=== PATIENT | female | born 1995 | race Caucasian/White ===

== ENCOUNTER → 2017-07-08 | Outpatient (CLI) | payer BC ==
--- NOTE | 2017-07-08 15:38 | RAD ---
Examination: 3 views of the left foot History: History of left foot pain for 3 weeks Comparison: None available Findings: The metatarsal bones grossly appears unremarkable. The alignment of the tarsometatarsal, metatarsophalangeal joints, interphalangeal grossly appears unremarkable. Impression: No acute osseous findings.
== END | disposition home or self-care (01) ==
LOC: DXRADRC 15:24
PROVIDERS: ATTEND Physician Assistant
DX: M79.672 Pain in left foot (principal)
CPT/HCPCS: 73630

== ENCOUNTER → 2017-07-16 | Outpatient (CLI) | payer BC ==
--- NOTE | 2017-07-16 15:41 | RAD ---
Focused ultrasound evaluation of the soft tissues of the posterior neck 07/16/2017 Indication: Soft tissue fullness in the posterior neck x7 years, possibly increasing in size. Discussion: Focused ultrasound evaluation of the soft tissues of the posterior neck was performed. Static images were submitted to PACS. No focal sonographic abnormality is identified. No abnormal blood flow seen on color Doppler imaging. No mass, or abnormal fluid collection is appreciated. Impression: No focal sonographic abnormality is identified
== END | disposition home or self-care (01) ==
LOC: US 14:25
PROVIDERS: ATTEND Physician Assistant
DX: R22.1 Localized swelling, mass and lump, neck (principal)
CPT/HCPCS: 76536

== ENCOUNTER 2017-10-06 21:38 | Emergency (ER) | payer SELFPAY ==
[~2017-10-06] VITALS: Ht 167.6 cm; Wt 89.0 kg
--- NOTE | 2017-10-06 21:39 | ED.ADGEN ---
Adult General Chief Complaint Chief Complaint " We both got sick after some [place] food..." HPI HPI Patient is a 22 year old female who presents with above hx. and complaints nausea, vomiting and diarrhea. Recent hx of [place] food. Her boyfriend also has same symptoms.` No recent travel. [place]. No contact with reptiles or poultry. No history immunosuppression. Patient is not . Normally follows Dr. Lui. Review of Systems Review of Systems Constitutional: Hx. of fever or chills [] Eyes: Denies change in visual acuity, redness, or eye pain [] HENT: Hx.of nasal congestion . Respiratory: Denies cough or shortness of breath [] Cardiovascular: No additional information not addressed in HPI [] GI: Hx of abdominal pain, nausea, vomiting,and diarrhea [] : Denies dysuria or hematuria [] Musculoskeletal: Denies back pain or joint pain [] Integument: Denies rash or skin lesions [] Neurologic: Denies headache, focal weakness or sensory changes [] Endocrine: Denies polyuria or polydipsia [] All other systems were reviewed and found to be within normal limits, except as documented in this note. Family History Family History Non-contributory Current Medications Current Medications Current Medications Medications (Trade) Dose Ordered Sig/Dominic Start Time Stop Time Status Last Admin Dose Admin Hydrocodone Bitartrate/ Ibuprofen (Vicoprofen 7.5-200) 2 tab 1X ONCE 10/06/17 23:00 10/06/17 23:01 DC 10/06/17 23:05 2 TAB Ondansetron HCl (Zofran Odt) 8 mg 1X ONCE 10/06/17 22:45 10/06/17 22:46 DC 10/06/17 21:54 8 MG Allergies Allergies Allergies Coded Allergies Type Severity Reaction Last Updated Verified No Known Drug Allergies 10/06/17 No Physical Exam Physical Exam Constitutional: Well developed, well nourished, moderately acute distress, non- toxic appearance. [] HENT: Normocephalic, atraumatic, bilateral external ears normal, oropharynx moist, Injected pharynx no oral exudates, nose swollen turbinates and rhinorrhea. Eyes: PERRLA, EOMI, conjunctiva normal, no discharge. [] Neck: Normal range of motion, no tenderness, supple, no stridor. [] Cardiovascular:Heart rate regular rhythm, no murmur [] Lungs & Thorax: Bilateral breath sounds clear to auscultation [] Abdomen: Bowel sounds hyperactive, soft, mild generalized tenderness, no masses , no pulsatile masses. [] Skin: Warm, dry, no erythema, no rash. [] Back: No tenderness, no CVA tenderness. [] Extremities: No tenderness, no cyanosis, no clubbing, ROM intact, no edema. [] Neurologic: Alert and oriented X 3, normal motor function, normal sensory function, no focal deficits noted. [] Psychologic: Affect anxious, judgement normal, mood normal. [] Current Patient Data Vital Signs Vital Signs Date Time Temp Pulse Resp B/P (MAP) Pulse Ox O2 Delivery O2 Flow Rate FiO2 10/06/17 23:08 98.2 10/06/17 21:45 104 20 98 Room Air Lab Results Laboratory Tests Test 10/06/17 21:56 10/06/17 21:59 Group A Streptococcus Rapid Negative (NEGATIVE) Influenza Type A (Rapid) Negative (NEGATIVE) Influenza Type B (Rapid) Negative (NEGATIVE) EKG EKG [] Radiology/Procedures Radiology/Procedures [] Course & Med Decision Making Course & Med Decision Making Pertinent Labs and Imaging studies reviewed. (See chart for details) Push clear fluids. Stay on clear fluid diet x 48 hrs. No solids or milk products. Tylenol and ibuprofen for pain and fever. Zofran 8 mg for vomiting up 4 x day. May take pepto bismal for diarrhea. Vicoprofen for marked discomfort. Follow up with primary. Return if any concerns. [] Final Impression Final Impression 1. Nausea Vomiting Diarrhea 2. Viral Syndrome 3. Fever[] 4. Possible food poisoning. Problems: Dragon Disclaimer Dragon Disclaimer This electronic medical record was generated, in whole or in part, using a voice recognition dictation system. LYRIC LIRA MD Oct 06, 2017 21:39
[2017-10-06 21:45] VITALS: BP 137/66
[2017-10-06] MEDS ORDERED: ONDANSETRON ODT 4 MG TAB.RAPDIS ONE (21:53)
[2017-10-06 22:32] LABS: INFLUENZA A PATIENT NEGATIVE (NEGATIVE); INFLUENZA B PATIENT NEGATIVE (NEGATIVE)
[2017-10-06] MEDS ORDERED: ONDANSETRON ODT 4 MG TAB.RAPDIS PO ONE (22:45)
[2017-10-06] MEDS ORDERED: HYDR-79 PO (22:54)
[2017-10-06] MEDS ORDERED: ONDA8TAB12 PO (22:54)
[2017-10-06] MEDS ORDERED: HYDROcodon/IBUPROFEN 7.5/200MG 1 TAB TABLET PO ONE (23:00)
== END 2017-10-06 23:08 | disposition home or self-care (01) ==
LOC: ER 21:38
DX: B34.9 Viral infection, unspecified (principal)
CPT/HCPCS: 87070; 87804; 87880; 99284; Q0162